=== PATIENT | male | born 1945 | race Caucasian/White ===

== ENCOUNTER 2018-06-10 19:20 | Emergency (ER) | payer MEDICARE ==
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
[2018-06-10] MEDS ORDERED: GLIM2TAB42 PO (19:50)
[2018-06-10] MEDS ORDERED: INSU100I35 SQ (19:50)
[2018-06-10] MEDS ORDERED: SERT-181 PO (19:50)
--- NOTE | 2018-06-10 19:59 | EKG ---
FACILITY: [facility] PATIENT NAME: JERAD CASAREZ : [id number] MR: [id number] V: [id number] EXAM DATE: ORDERING PHYSICIAN: SONI ZENG TECHNOLOGIST: MARY Test Reason : AMS Blood Pressure : / mmHG Vent. Rate : 070 BPM Atrial Rate : 070 BPM P-R Int : 184 ms QRS Dur : 082 ms QT Int : 418 ms P-R-T Axes : 081 099 -06 degrees QTc Int : 451 ms Sinus rhythm with occasional premature ventricular complexes Rightward axis Abnormal QRS-T angle, consider primary T wave abnormality Abnormal ECG No previous ECGs available Confirmed by Bowen Aguilar ([id number]) on 06/11/2018 12:29:20 AM Referred By: Confirmed By:Bowen John
[2018-06-10 20:10] LABS: PLATELET COUNT, AUTOMATED 160 K/uL (150-450)
--- NOTE | 2018-06-10 20:52 | RADIOLOGY IMAGING REPORT ---
FACILITY: [facility] PATIENT NAME: Rom Hart : 1945 MR: [id number] V: [id number] EXAM DATE: ORDERING PHYSICIAN: SONI ZENG TECHNOLOGIST: Location: [facility] [place] Patient: Rom Hart : 1945 Visit/Account:[id number] Date of Sevice: 06/10/[address] scan without contrast COMPARISONS: None ADDITIONAL PERTINENT HISTORY: Altered mental status TECHNIQUE: Multiple axial images were obtained from the skull base to the vertex without IV contrast . One of the following dose optimization techniques was utilized in the performance of this exam: Aut omated exposure control; adjustment of the mA and/or kV according to the patient's size; or use of an iterative reconstruction technique. Specific details can be referenced in the facility's radiology CT exam operational policy. FINDINGS: Midline shift: Negative Ventricles: Negative Brain parenchyma: Remote area of infarct involving the left parietal lobe. Patchy hypoattenuation wi thin the periventricular and subcortical white matter. Remote lacunar infarct involving the left caud ate head. Also region of encephalomalacia involving the left insular cortex. No intraparenchymal hemo rrhage or mass effect. Extra-axial spaces: Moderate cerebral atrophy. Otherwise negative Intracranial vasculature: Cavernous internal carotid and distal vertebral artery calcifications. Oth erwise negative Osseous structures: Negative Paranasal sinuses and mastoid air cells: Negative Surrounding soft tissues and orbits: Negative IMPRESSION: 1. 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 2. No evidence of acute intracranial pathology. 3. Other age-related changes as described above. Report Dictated By: Gabino Foster MD at 06/10/2018 8:46 PM Report E-Signed By: Gabino Foster MD at 06/10/2018 8:49 PM WSN:[id number]
[2018-06-10 22:30] VITALS: BP 170/89
== END 2018-06-10 23:19 ==
LOC: ER 19:54
DX: F32.9 Major depressive disorder, single episode, unspecified (principal); F03.90 Unspecified dementia, unspecified severity, without behavioral disturbance, psychotic disturbance, mood disturbance, and anxiety; R45.851 Suicidal ideations; Z79.899 Other long term (current) drug therapy
CPT/HCPCS: 36415; 70450; 80305; 81001; 83735; 84443; 85025; 93005; 99284; G0480; 80320; 80329; 82040; 82247; 82310; 82374; 82435; 82565; 82947; 84075; 84132; 84155; 84295; 84450; 84460; 84520

== ENCOUNTER 2018-06-10 22:42 | Inpatient (IN) | payer MEDICARE ==
[~2018-06-10] VITALS: Ht 165.1 cm; Wt 59.0 kg
[~2018-06-10 22:42] MED LIST: GLIM2TAB42 PO; INSU100I35 SQ; SERT-181 PO
[2018-06-10] MEDS ORDERED: ACETAMINOPHEN 325 MG TAB PO PRN (23:50)
[2018-06-10] MEDS ORDERED: MAG HYD/AL HYD/SIMETH 30ML UDC PO PRN (23:50)
[2018-06-11 00:33] VITALS: BP 207/111
[2018-06-11] MEDS: MULTIVITAMINS TAB PO SCH (08:16)
[2018-06-11] MEDS: FOLIC ACID 1 MG TAB PO SCH (08:16)
[2018-06-11] MEDS: THIAMINE HCL 100 MG TAB PO SCH (08:16)
[2018-06-11] MEDS: INSULIN HUMAN LISPRO SLIDING SCALE SUBQ PRN (08:18)
[2018-06-11 11:50] VITALS: BP 142/88
[2018-06-11] MEDS: amLODIPine BESYL(*) 5 MG TAB PO SCH (14:28)
--- NOTE | 2018-06-11 15:18 | Hospitalist Consultation ---
History of Present Illness Requesting Physician Saira Reason for Consult Restarting chronic medications. History of Present Illness 73yo male with a h/o T2DM/HTN/CAD who admitted to [facility] for suicidal ideation, progressive confusion and inability to care for himself. Per Dr. Jalloh, the patient has been off of any medication for some time for unclear reasons. The patient denies cp/sob. He isn't able to give much in the way of a detailed history. History Problems: (1) HTN (hypertension) Status: Chronic (2) T2DM (type 2 diabetes mellitus) Status: Chronic (3) CKD (chronic kidney disease) stage 3, GFR 30-59 ml/min Status: Chronic (4) CAD (coronary artery disease) Status: Chronic Home Meds Reported Medications Insulin Aspart 100 Un/Ml Pen (NOVOLOG FLEXPEN) 100 Unit/1 Ml Insuln.pen, 100 UNIT SQ BID, ML 06/10/18 Sertraline Hcl (SERTRALINE HCL) 100 Mg Tablet, 1 TAB PO QDAY, TAB 06/10/18 Glimepiride (AMARYL) 2 Mg Tablet, 2 MG PO QDAY 06/10/18 Allergies: Coded Allergies: No Known Allergies (Verified Allergy, Unknown, 06/10/18) Hx Smoking: No Smoking Status: Former Smoker Exposure to Second Hand Smoke?: No Caffeine Intake: Soda Hx Alcohol Use: Yes Hx Substance Use Disorder: Yes Social Drug Use: Former Social Drugs: Marijuana History of IV Drug Use: No Review of Systems All Systems Reviewed/Normal: Yes, Except as Noted (but limited because the patient doesn't give many details about his health) Exam Vital Signs Vital Signs Date Time Temp Pulse Resp B/P (MAP) Pulse Ox O2 Delivery O2 Flow Rate FiO2 06/11/18 11:50 98.6 70 142/88 (106) 96 Room Air 06/11/18 00:33 16 General Appearance: Alert, Awake, No Acute Distress Neuro: Other (Knows that he is in a [facility] [place], but not the town. He doesn't know the year or month.) ENT: Moist Mucous Membranes Cardiovascular: Regular Rate and Rhythm Respiratory: Clear to Auscultation GI: Abd Soft and Non-Tender Extremities: No Edema Medical Decision Making Data Points Item Value Date Time Whole Blood Glucose 136 mg/DL H 06/11/18 1152 Whole Blood Glucose 231 mg/DL H 06/11/18 0741 Hemoglobin A1c 9.5 % H 06/11/18 1142 Thyroid Stimulating Hormone (TSH) 1.73 uIU/ml 06/10/181957 Blood Urea Nitrogen 40 mg/dl H 06/10/181957 Creatinine 1.40 mg/dl H 06/10/181957 Random Glucose 158 mg/dl H 06/10/181957 Calcium Level 9.3 mg/dl 06/10/181957 Magnesium Level 2.1 mg/dl 06/10/181957 Total Bilirubin 0.4 mg/dl 06/10/181957 Aspartate Amino Transf (AST/SGOT) 23 U/L 06/10/181957 Alanine Aminotransferase (ALT/SGPT) 20 U/L 06/10/181957 Alkaline Phosphatase 74 U/L 06/10/181957 White Blood Count 5.1 k/uL 06/10/181957 Hemoglobin 14.5 g/dL 06/10/181957 Platelet Count 160 K/uL 06/10/181957 Neutrophils (%) (Auto) 66.2 % 06/10/181957 Urine Glucose (UA) 50 mg/dL H 06/10/182001 Urine Blood Small 06/10/182001 Urine RBC 1 /HPF 06/10/182001 Urine WBC 2 /HPF 06/10/182001 Urine Leukocyte Esterase Negative 06/10/182001 Urine Squamous Epithelial Cells Many /LPF H 06/10/182001 Urine Bacteria Negative /HPF 06/10/182001 Acetaminophen Level < 10 ug/ml 06/10/181957 Salicylates Level < 10 mg/L 06/10/181957 Serum Alcohol < 10 mg/dl 06/10/181957 Urine Cannabinoids Screen Negative 06/10/182001 Urine Cocaine Screen Negative 06/10/182001 Urine Benzodiazepines Screen Negative 06/10/182001 Urine Amphetamines Screen Negative 06/10/182001 Urine Phencyclidine Screen Negative 06/10/182001 Ur Tricyclic Antidepressants Screen Negative 06/10/182001 Urine Barbiturates Screen Negative 06/10/182001 Urine Opiates Screen Negative 06/10/182001 EKG / Imaging EKG Interpretation Vent. Rate : 070 BPM Atrial Rate : 070 BPM P-R Int : 184 ms QRS Dur : 082 ms QT Int : 418 ms P-R-T Axes : 081 099 -06 degrees QTc Int : 451 ms Sinus rhythm with occasional premature ventricular complexes Rightward axis Abnormal QRS-T angle, consider primary T wave abnormality Abnormal ECG No previous ECGs available Confirmed by Bowen Aguilar ([id number]) on 06/11/2018 12:29:20 AM Imaging 06/10/[address] - 1. 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 2. No evidence of acute intracranial pathology. 3. Other age-related changes as described above. Assessment and Plan Problems: (1) T2DM (type 2 diabetes mellitus) Status: Chronic Assessment & Plan: Glucose ranging from 136-231. HgA1c was 9.5. It is unclear what he is on chronically. Will start on Januvia and check glucose AC and HS with SSI to cover. (2) HTN (hypertension) Status: Chronic Assessment & Plan: BP was as high as 207/111 in the ER. BP this morning was 142/88. Will start amlodipine (secondary to no need for lab testing) for now, but he would likely benefit from an ACEI once he can be followed consistently by a PCP. (3) CAD (coronary artery disease) Status: Chronic Assessment & Plan: He reports having a CABG in the past. He should be on ASA and a statin. Will recheck Cr tomorrow and might start ASA. The statin can wait until he gets established with a PCP. (4) CKD (chronic kidney disease) stage 3, GFR 30-59 ml/min Status: Chronic Assessment & Plan: Cr was 1.4 upon admission. Recheck tomorrow. (5) Suicidal ideation Status: Acute Assessment & Plan: Will defer to Dr. Jalloh. Copies to: CUCO JALLOH MD Venous Thromboembolism Antithrombotics Is Pt On Any Antithrombotics?: No JHON WIGGINS MD Jun 11, 2018 15:18
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
[2018-06-11 18:00] VITALS: BP 180/83
[2018-06-11 18:22] VITALS: BP 171/86
[2018-06-12 05:56] VITALS: BP 175/84
[2018-06-12] MEDS: INSULIN HUMAN LISPRO SLIDING SCALE SUBQ PRN ×3 (07:51→22:17)
[2018-06-12] MEDS: THIAMINE HCL 100 MG TAB PO SCH (07:52)
[2018-06-12] MEDS: FOLIC ACID 1 MG TAB PO SCH (07:52)
[2018-06-12] MEDS: MULTIVITAMINS TAB PO SCH (07:52)
[2018-06-12] MEDS: amLODIPine BESYL(*) 5 MG TAB PO SCH (07:53)
[2018-06-12 09:30] VITALS: BP 118/75
--- NOTE | 2018-06-12 09:46 | B[facility] Progress Note ---
S - Subjective Progress Notes Subjective Patient interacting well this AM, and remembers this provider from the day before. Patient demonstrating very good appetite on the unit, and noted to have slept well last PM. Patient giving no indication of abuse or negative interactions at home. Patient is aware that he will be moving to [facility] with the family he is staying with, but notably patient stating he has no memory of any negative interaction with the family prior to admission. Patient denies any other concerns. Diabetes and HTN followed by Hospitalist. Will plan on discharge to family tomorrow. Suicidal Ideation: None Homicidal Ideation: None [facility] - Objective Physical Exam Vital Signs Hematology Test 06/11/18 11:42 06/11/18 19:59 06/12/18 05:49 06/12/18 07:30 Hemoglobin A1c 9.5 % (4.6-6.0) Vitamin D 25-Hydroxy 21 ng/ml (30-100) Free Thyroxine 0.94 ng/dl (0.78-2.19) Sodium Level 135 mmol/L (137-145) Potassium Level 4.4 mmol/L (3.5-5.0) Chloride Level 102 mmol/L (98-107) Carbon Dioxide Level 24 mmol/L (22-30) Blood Urea Nitrogen 44 mg/dl (9-21) Creatinine 1.70 mg/dl (0.66-1.25) Glomerular Filtration Rate Calc 39.5 Random Glucose 228 mg/dl (75-110) Calcium Level 9.2 mg/dl (8.4-10.2) Whole Blood Glucose 224 mg/DL (75-110) Chemistry Test 06/11/18 11:42 06/11/18 19:59 06/12/18 05:49 06/12/18 07:30 Hemoglobin A1c 9.5 % (4.6-6.0) Vitamin D 25-Hydroxy 21 ng/ml (30-100) Free Thyroxine 0.94 ng/dl (0.78-2.19) Glomerular Filtration Rate Calc 39.5 Calcium Level 9.2 mg/dl (8.4-10.2) Whole Blood Glucose 224 mg/DL (75-110) Vital Signs Date Time Temp Pulse Resp B/P (MAP) Pulse Ox O2 Delivery O2 Flow Rate FiO2 06/12/18 05:56 97.7 65 15 175/84 (114) 94 Room Air Muscle Strength and Tone: WNL Gait and Station: Steady [facility] Medications Reviewed: Side Effects, Benefits of Medication, Risks Allergies Reviewed: Yes Mental Status Exam General Appearance: Casual, Well Groomed, Good Eye Contact, Cooperative, Polite , Good Interaction, No Unkept, No Tearful, No Psychomotor Agitation, No Psychomotor Retardation, No Bizarre Mannerisms, No Tics Speech: Clear, Spontaneous, Normal Rhythm, Normal Volume, Normal Tone, Delayed (minimal delay, potentially culture related), No Garbled, No Rambling, No Inappropriate Mood: Euthymic ("good") Affect: Full and Appropriate, Calm, No Sad, No Neutral, No Flat, No Withdrawn, No Tearful, No Anxious, No Agitated Thought Process: Organized, Goal Directed, No Loose Associations, No Flight of Ideas Thought Content: No Suicidal Ideation, No Homicidal Ideation, No Delusions, No Auditory Halllucinations, No Visual Hallucinations, No Thought Broadcasting, No Ideas of Reference, No Obsessions, No Compulsions Sensorium: Clear Cognition: Alert & Oriented-Person, Alert & Oriented-Place, Alert & Oriented- Time, Jbvsv-[id number]-Nyyrvgues Memory: No Immediate (some limitations exist), Recent, Remote Intelligence: Average Insight Judgment: Poor (will need supervision on discharge , underlying dementia present) Result Diagram: 06/12/18 0549 [facility] Assessment and Plan [id number] Encounter Date: Jun 12, 2018 [id number] Encounter Time: 09:00 [facility] Plan: Necessary Precautions, Individual/Group Therapy, Admin/Titrate Meds, Educate Patient Tobacco Medications: Not Appropriate Condition Multpiple Antipsychotics Used: No Problems: (1) Neurocognitive disorder Optional Permanent Comment: moderate with some behavioral disturbance Last Edited By: Cuco Jalloh on Jun 12, 2018 09:46 Status: Chronic Condition 1. continue treatment. 2. plan for discharge tomorrow. CUCO JALLOH MD Jun 12, 2018 09:46
[2018-06-13 05:48] VITALS: BP 126/70
[2018-06-13] MEDS: FOLIC ACID 1 MG TAB PO SCH (08:02)
[2018-06-13] MEDS: THIAMINE HCL 100 MG TAB PO SCH (08:02)
[2018-06-13] MEDS: MULTIVITAMINS TAB PO SCH (08:02)
[2018-06-13] MEDS: amLODIPine BESYL(*) 5 MG TAB PO SCH (08:02)
[2018-06-13] MEDS: INSULIN HUMAN LISPRO SLIDING SCALE SUBQ PRN (08:04)
[2018-06-13 08:47] VITALS: BP 141/94
[2018-06-13] MEDS ORDERED: SITA50TA6 PO (09:56)
[2018-06-13] MEDS ORDERED: MULT-859 PO (09:57)
[2018-06-13] MEDS ORDERED: AMLO-101 PO (09:57)
[2018-06-13] MEDS ORDERED: ACET-1966 PO (09:58)
[2018-06-13] MEDS ORDERED: LOPERAMIDE HCL 2 MG CAP PO PRN (10:30)
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
== END 2018-06-13 11:05 | disposition home or self-care (01) | DRG 57 ==
LOC: BHS 22:42
PROVIDERS: ADMIT Psychiatry & Neurology Psychiatry; ATTEND Psychiatry & Neurology Psychiatry
DX: G31.84 Mild cognitive impairment of uncertain or unknown etiology (principal); R45.851 Suicidal ideations; N28.9 Disorder of kidney and ureter, unspecified; E11.22 Type 2 diabetes mellitus with diabetic chronic kidney disease; E11.65 Type 2 diabetes mellitus with hyperglycemia; I12.9 Hypertensive chronic kidney disease with stage 1 through stage 4 chronic kidney disease, or unspecified chronic kidney disease; N18.3 Chronic kidney disease, stage 3 (moderate); I25.10 Atherosclerotic heart disease of native coronary artery without angina pectoris; Z87.891 Personal history of nicotine dependence; Z95.1 Presence of aortocoronary bypass graft
CPT/HCPCS: 36415; 36416; 70450; 80305; 80320; 80329; 81001; 82040; 82247; 82306; 82310; 82374; 82435; 82565; 82607; 82947; 82948; 83036; 83735; 84075; 84132; 84153; 84155; 84295; 84439; 84443; 84450; 84460; 84481; 84520; 85025; 86592; 93005; 99284